=== PATIENT | female | born 1930 | race Caucasian/White ===

== ENCOUNTER 2020-10-13 06:36 | Observation (INO) ==
[2020-10-13] MEDS ORDERED: SODIUM CHLORIDE 0.9% 1000ML 1,000 ML IV STA (06:52)
[2020-10-13] MEDS ORDERED: ONDANSETRON INJ 2 MG/ML 2 ML VIAL IV STA ×2 (06:52→09:47)
[2020-10-13 07:36] LABS: Basophils # (auto) 0.02 K/uL (0-0.2); Basophils % (auto) 0.2 %; Eosinophils # (auto) 0.15 K/uL (0-0.5); Eosinophils % (auto) 1.7 %; Hematocrit (blood only) 38.2 % (37-47); Hemoglobin 12.6 g/dL (12.0-16.0); Immature Granulocytes # (auto) 0.02 K/uL (0.00-0.02); Immature Granulocytes % (auto) 0.2 %; Lymphocytes # (auto) 1.49 K/uL (1.2-3.4); Lymphocytes % (auto) 16.9 %; Mean Corpuscular Hemoglobin 29.9 pg (25-34); Mean Corpuscular Volume 90.7 fL (80-100); Mean Platelet Volume 9.5 fL (7.4-10.4); Monocytes # (auto) 0.43 K/uL (0.11-0.59); Monocytes % (auto) 4.9 %; Neutrophils # (auto) 6.72 K/uL (1.4-6.5); Neutrophils % (auto) 76.1 %; Platelet Count 295 K/uL (130-400); RDW Coefficient of Variation 14.2 % (11.5-14.5); RDW Standard Deviation 47.2 fL (36.4-46.3); Red Blood Count 4.21 M/uL (4.2-5.4); White Blood Count 8.83 K/uL (4.8-10.8)
[2020-10-13 07:56] LABS: Alanine Aminotransferase 19 U/L (12-78); Albumin Level 3.2 gm/dl (3.4-5.0); Aspartate Aminotransferase 17 U/L (15-37); BUN Creatinine Ratio 14.2 (10-20); Blood Urea Nitrogen 15 mg/dl (7-18); Calcium 8.4 mg/dl (8.5-10.1); Carbon Dioxide 25 mmol/L (21-32); Chloride 106 mmol/L (98-107); Creatinine Clr Calc Pharmacy 31.2 ml/min; Est GFR (African American) 55.6 ml/min; Est GFR (Non-African American) 47.9 ml/min; Glucose 178 mg/dl (70-99); Lipase 82 U/L (73-393); Potassium 2.9 mmol/L (3.5-5.1); Sodium 140 mmol/L (136-145)
--- NOTE | 2020-10-13 07:57 | CT Scan Report ---
CT SCAN OF THE ABDOMEN AND PELVIS WITHOUT IV CONTRAST CLINICAL HISTORY: Vomiting. Generalized abdominal pain. COMPARISON STUDY: No priors. TECHNIQUE: CT scan of the abdomen and pelvis is performed from the lung bases to the proximal femora. Images are reviewed in the axial, sagittal, and coronal planes. IV contrast was not administered for this examination. Note that the examination is performed in significantly suboptimal fashion without oral and IV contrast. A dose lowering technique was utilized adhering to the principles of ALARA. CT DOSE: 422.56 mGy.cm FINDINGS: Lung bases: The patient is status post midline sternotomy. The heart is enlarged and without pericard ial effusion. The coronary arteries are densely calcified. The lung bases are clear noting bibasilar scarring/atelectasis. There is a moderate hiatal hernia. Liver: The unenhanced liver is normal in size, contour, and attenuation. There is no intrahepatic melinda iary ductal dilatation. Gallbladder: Surgically absent noting clips in the gallbladder fossa. Spleen: Normal in size and attenuation. Pancreas: The unenhanced pancreas is moderately atrophic and grossly unremarkable. Adrenal glands: Unremarkable. Kidneys: The unenhanced kidneys are atrophic and without hydronephrosis. There are no renal calculi i dentified. A 7 cm exophytic cyst arises from the left kidney. Abdominal vasculature: The abdominal aorta is normal in course and caliber noting advanced atheroscle rotic calcification. Bowel: There is no bowel obstruction. The appendix is not identified and reported surgically absent. Peritoneum: There is no intraperitoneal free air or abdominal ascites. Lymphadenopathy: None. Pelvic viscera: The bladder is largely decompressed and grossly unremarkable. The uterus is surgicall y absent. No adnexal lesion is seen. Skeletal structures: The skeletal structures are osteopenic. There is moderate lumbosacral spondylosi s. No lytic or blastic lesions are seen. IMPRESSION: 1. Suboptimal examination without oral and IV contrast. 2. There are no acute infectious or inflammatory findings in the abdomen or pelvis. 3. Cardiomegaly. 4. Hiatal hernia. 5. Additional findings as above. ACT 112: Negative or not required by law. Electronically signed by: Fabian Olivo M.D. 10/13/2020 7:55 AM
[2020-10-13 08:00] LABS: Alkaline Phosphatase 113 U/L (45-117); Bilirubin,Total 0.7 mg/dl (0.2-1); Globulin 3.2 gm/dl (2.5-4.0); Total Protein 6.4 gm/dl (6.4-8.2); Troponin I < 0.015 ng/ml (0-0.045)
[2020-10-13] MEDS ORDERED: POTASSIUM CHLORIDE 10 MEQ TABCR PO STA (09:38)
--- NOTE | 2020-10-13 09:39 | Emergency Department Note ---
History of Present Illness General Chief complaint: Illness Stated complaint: NAUSEA/VOMITING/WEAKNESS Time Seen by Provider: 10/13/20 06:54 History of Present Illness 89-year-old female presents to the ED with a chief complaint of awakening with some diarrhea this morning. The patient states that occurred around 4:30 AM. She states that she got up and felt dizzy and felt like she was going to pass out. She lowered herself to the floor. After this she felt hot and nauseated and started vomiting. She states that she vomited numerous times. The patient called EMS as her symptoms did not otis. She denied having abdominal pains. She does report having a chicken salad sandwich that was 5 days old last night. She thought this might be related to her symptoms. She states that it tasted okay. She has no additional complaints this time. No fevers. Denies any head trauma. Home Medications Medication Instructions Recorded Confirmed Type acetaminophen 325 mg tablet 650 mg PO DIRECTED 11/21/18 10/13/20 History (Tylenol) acetaminophen 500 mg tablet 500 mg PO DIRECTED 11/21/18 10/13/20 History (Tylenol Extra Strength) aluminum hydrox-magnesium carb 160 1 tab PO HS PRN 11/21/18 10/13/20 History mg-105 mg chewable tablet (Gaviscon Extra Strength) aspirin 81 mg tablet,delayed 81 mg PO QAM 11/21/18 10/13/20 History release (Ecotrin Low Strength) atorvastatin 20 mg tablet 20 mg PO HS 11/21/18 10/13/20 History cholecalciferol (vitamin D3) 50 4,000 unit PO QDD 11/21/18 10/13/20 History mcg (2,000 unit) capsule (Vitamin D3) conjugated estrogens 0.3 mg tablet 0.3 mg PO HS 11/21/18 10/13/20 History (Premarin) escitalopram oxalate 10 mg tablet 10 mg PO QAM 11/21/18 10/13/20 History (Lexapro) furosemide 20 mg tablet (Lasix) 20 mg PO 3XWK 11/21/18 10/13/20 History glucosamine 500 mg-chondroitin 2 cap PO QAM 11/21/18 10/13/20 History 116.7 mg-herbal no.270 133.3 mg capsule (Cosamin ASU (with AKBA)) isosorbide mononitrate 30 mg 30 mg PO QAM 11/21/18 10/13/20 History tablet,extended release 24 hr lansoprazole 30 mg capsule,delayed 30 mg PO DAILYBB 11/21/18 10/13/20 History release (Prevacid) levothyroxine 25 mcg tablet 25 mcg PO DAILYBB 11/21/18 10/13/20 History (Synthroid) lisinopril 20 mg tablet 20 mg PO QAM 11/21/18 10/13/20 History metoprolol succinate 25 mg 25 mg PO QAM 11/21/18 10/13/20 History tablet,extended release 24 hr (Toprol XL) nitroglycerin 0.4 mg sublingual 0.4 mg SUBLINGUAL DIRECTED PRN 11/21/18 10/13/20 History tablet potassium chloride 10 mEq 10 meq PO 3XWK 11/21/18 10/13/20 History capsule,extended release vitamin E 400 unit capsule 400 unit PO QDD 11/21/18 10/13/20 History Allergies Allergy/AdvReac Type Severity Reaction Status Date / Time amoxicillin Allergy Intermediate HIVES Verified 03/17/20 13:49 Penicillins Allergy Unknown "CAN'T Verified 03/17/20 13:49 REMEMBER" "HIGH TEST DYE" USED FOR Allergy Intermediate Rash Uncoded 03/17/20 13:49 CARDIAC CATH; "LOW TEST DYE O.K." Past Med/Surg History Medical History (Updated 10/13/20 @ 09:44 by Toño [place] DO) CAD (coronary artery disease) Degenerative arthritis of knee, bilateral Depression GERD (gastroesophageal reflux disease) HLD (hyperlipidemia) HTN (hypertension) Hypothyroidism KAVITA (obstructive sleep apnea) Surgical History S/P CABG x 2 S/P cholecystectomy S/P LIZZIE-BSO Social History Smoking Status: Never smoker Feels Safe at Home: Yes Review of Systems A total of 10 systems reviewed and were otherwise negative Physical Exam Vital Signs Vital Signs - 24 hr 10/13/20 06:41 10/13/20 06:47 10/13/20 07:00 Temperature 36.4 C L Temperature Source Oral Pulse Rate 68 70 66 Pulse Rate from SpO2 Sensor 67 66 Respiratory Rate 17 17 20 Respiratory Effort / Characteristics Non-Labored Spontaneous Respiratory Depth Normal Blood Pressure 155/74 H 155/74 H 176/61 H Blood Pressure Mean 101 101 99 Pulse Oximetry 92 94 93 Oxygen Delivery Method Room Air Oxygen Flow Rate Sepsis New/Unexplained Change in Mental Status N/A Sepsis Action Taken by Nursing No Action Required 10/13/20 08:00 10/13/20 08:30 10/13/20 09:00 Temperature Temperature Source Pulse Rate 81 68 61 Pulse Rate from SpO2 Sensor 83 69 60 Respiratory Rate 12 19 19 Respiratory Effort / Characteristics Respiratory Depth Blood Pressure 152/71 H 141/61 H 137/62 Blood Pressure Mean 98 87 87 Pulse Oximetry 93 91 92 Oxygen Delivery Method Nasal Cannula Nasal Cannula Oxygen Flow Rate 2 2 Sepsis New/Unexplained Change in Mental Status Sepsis Action Taken by Nursing CONSTITUTIONAL/VITAL SIGNS: Reviewed / noted above. GENERAL: Non-toxic in appearance. INTEGUMENTARY: Warm, dry, and [place]. HEAD: Normocephalic. EYES: without scleral icterus or trauma. ENT/OROPHARYNX: clear and moist. LYMPHADENOPATHY/NECK: Is supple without lymphadenopathy or meningismus. RESPIRATORY: Clear to auscultation bilaterally. No increased work of breathing. CARDIOVASCULAR: Regular rate and rhythm. GI/ABDOMEN: Soft and nontender. No organomegaly or pulsatile mass. EXTREMITIES: Warm and well perfused. BACK: No CVA tenderness. NEUROLOGICAL: Intact without focal deficits. PSYCHIATRIC: normal affect. MUSCULOSKELETAL: Normally developed with good muscle tone. TRIAGE NURSING DOCUMENTATION REVIEWED. Course Administered Medications Discontinued Medications Sodium Chloride (Nss 1000ml) 1,000 mls @ 999 mls/hr IV .Q1H1M STA Stop: 10/13/20 07:52 Last Infusion: 10/13/20 09:09 Dose: 0 mls/hr Documented by: [id number] Admin: 10/13/20 07:21 Dose: 999 mls/hr Documented by: [id number] Ondansetron HCl (Ondansetron Inj 2 Mg/Ml 2 Ml Vial) 4 mg IV NOW STA Stop: 10/13/20 06:53 Last Admin: 10/13/20 07:21 Dose: 4 mg Documented by: [id number] Medical Decision Making Differential Diagnosis Gastroenteritis, food borne illness, infections, appendicitis, diverticulitis, inflammatory bowel disease, obstruction, GI bleed, biliary pathology, volvulus, as well as other pathologies. Medical Records Attestation: I reviewed the patient's medical records. Home Medications Current Medication List: was personally reviewed by me Laboratory Data Attestation: I reviewed the patient's lab results. Result diagrams: 10/13/20 Unknown 10/13/20 Unknown Lab Results 10/13/20 10/13/20 Range/Units Unknown Unknown WBC 8.83 (4.8-10.8) K/uL RBC 4.21 (4.2-5.4) M/uL Hgb 12.6 (12.0-16.0) g/dL Hct 38.2 (37-47) % MCV 90.7 (80-100) fL MCH 29.9 (25-34) pg MCHC 33.0 (32-36) g/dL RDW Std Deviation 47.2 H (36.4-46.3) fL RDW Coeff of Sarahi 14.2 (11.5-14.5) % Plt Count 295 (130-400) K/uL MPV 9.5 (7.4-10.4) fL Immature Gran % (Auto) 0.2 % Neut % (Auto) 76.1 % Lymph % (Auto) 16.9 % Worth % (Auto) 4.9 % Eos % (Auto) 1.7 % Baso % (Auto) 0.2 % Neut # (Auto) 6.72 H (1.4-6.5) K/uL Lymph # (Auto) 1.49 (1.2-3.4) K/uL Worth # (Auto) 0.43 (0.11-0.59) K/uL Eos # (Auto) 0.15 (0-0.5) K/uL Baso # (Auto) 0.02 (0-0.2) K/uL Immature Gran # (Auto) 0.02 (0.00-0.02) K/uL Sodium 140 (136-145) mmol/L Potassium 2.9 L (3.5-5.1) mmol/L Chloride 106 (98-107) mmol/L Carbon Dioxide 25 (21-32) mmol/L Anion Gap 8.0 (3-11) BUN 15 (7-18) mg/dl Creatinine 1.04 (0.6-1.2) mg/dl Est Cr Clr Drug Dosing 31.2 ml/min Est GFR ( Amer) 55.6 ml/min Est GFR (Non-Af Amer) 47.9 ml/min BUN/Creatinine Ratio 14.2 (10-20) Glucose 178 H (70-99) mg/dl Calcium 8.4 L (8.5-10.1) mg/dl Total Bilirubin 0.7 (0.2-1) mg/dl AST 17 (15-37) U/L ALT 19 (12-78) U/L Alkaline Phosphatase 113 (45-117) U/L Troponin I < 0.015 (0-0.045) ng/ml Total Protein 6.4 (6.4-8.2) gm/dl Albumin 3.2 L (3.4-5.0) gm/dl Globulin 3.2 (2.5-4.0) gm/dl Albumin/Globulin Ratio 1.0 (0.9-2) Lipase 82 (73-393) U/L Imaging Data Radiologist's Impression: Abdomen/Pelvis CT 10/13/20 06:52 CT SCAN OF THE ABDOMEN AND PELVIS WITHOUT IV CONTRAST CLINICAL HISTORY: Vomiting. Generalized abdominal pain. COMPARISON STUDY: No priors. TECHNIQUE: CT scan of the abdomen and pelvis is performed from the lung bases to the proximal femora. Images are reviewed in the axial, sagittal, and coronal planes. IV contrast was not administered for this examination. Note that the examination is performed in significantly suboptimal fashion without oral and IV contrast. A dose lowering technique was utilized adhering to the principles of ALARA. CT DOSE: 422.56 mGy.cm FINDINGS: Lung bases: The patient is status post midline sternotomy. The heart is enlarged and without pericardial effusion. The coronary arteries are densely calcified. The lung bases are clear noting bibasilar scarring/atelectasis. There is a moderate hiatal hernia. Liver: The unenhanced liver is normal in size, contour, and attenuation. There is no intrahepatic biliary ductal dilatation. Gallbladder: Surgically absent noting clips in the gallbladder fossa. Spleen: Normal in size and attenuation. Pancreas: The unenhanced pancreas is moderately atrophic and grossly unremarkable. Adrenal glands: Unremarkable. Kidneys: The unenhanced kidneys are atrophic and without hydronephrosis. There are no renal calculi identified. A 7 cm exophytic cyst arises from the left kidney. Abdominal vasculature: The abdominal aorta is normal in course and caliber noting advanced atherosclerotic calcification. Bowel: There is no bowel obstruction. The appendix is not identified and reported surgically absent. Peritoneum: There is no intraperitoneal free air or abdominal ascites. Lymphadenopathy: None. Pelvic viscera: The bladder is largely decompressed and grossly unremarkable. The uterus is surgically absent. No adnexal lesion is seen. Skeletal structures: The skeletal structures are osteopenic. There is moderate lumbosacral spondylosis. No lytic or blastic lesions are seen. IMPRESSION: 1. Suboptimal examination without oral and IV contrast. 2. There are no acute infectious or inflammatory findings in the abdomen or pelvis. 3. Cardiomegaly. 4. Hiatal hernia. 5. Additional findings as above. ACT 112: Negative or not required by law. Electronically signed by: Fabian Olivo M.D. 10/13/2020 7:55 AM ECG Data Attestation: I personally reviewed and interpreted this ECG as follows: Additional Comments: Twelve-lead EKG: Per my interpretation reveals a normal sinus rhythm at a rate of 66. No ST elevation. No PVCs. Normal QTC. MDM Narrative Patient presents with some diarrhea and vomiting possibly related to a sandwich she had last night. Details listed above. The patient's exam did not reveal any abdominal tenderness. Her twelve-lead EKG shows normal sinus rhythm at a rate of 66. Potassium is 2.9. Glucose is 178. CT scan of the abdomen pelvis did not show acute process. The patient was given IV fluids as well as IV Zofran x2. Oral potassium was ordered but the patient threw up before getting it. She will need observation for IV hydration, potassium replacement and vomit ing control. She also had an episode of diarrhea while here. Impression & Plan Nausea vomiting and diarrhea, Acute hypokalemia Discharge Plan Visit Data Chief Complaint: Illness Stated Complaint: NAUSEA/VOMITING/WEAKNESS ED Provider: Toño [place] Discharge Problem: Nausea vomiting and diarrhea, Acute hypokalemia Patient Disposition: Home - Self-Care Forms Stand Alone Forms: My [facility], Virtual Emergency Department, Important Visit Information Prescriptions Prescriptions: No Action potassium chloride 10 mEq Capsule, Extended Release 10 meq PO 3XWK RF: 0 acetaminophen [Tylenol] 325 mg Tablet 650 mg PO DIRECTED RF: 0 atorvastatin 20 mg Tablet 20 mg PO HS RF: 0 lisinopril 20 mg Tablet 20 mg PO QAM RF: 0 isosorbide mononitrate 30 mg Tablet Extended Release 24 Hr 30 mg PO QAM RF: 0 aspirin [Ecotrin Low Strength] 81 mg Tablet,Delayed Release (Dr/Ec) 81 mg PO QAM RF: 0 acetaminophen [Tylenol Extra Strength] 500 mg Tablet 500 mg PO DIRECTED RF: 0 levothyroxine [Synthroid] 25 mcg Tablet 25 mcg PO DAILYBB RF: 0 lansoprazole [Prevacid] 30 mg Capsule,Delayed Release(Dr/Ec) 30 mg PO DAILYBB RF: 0 nitroglycerin 0.4 mg Tablet, Sublingual 0.4 mg sublingual DIRECTED PRN (Reason: Chest Pain) RF: 0 furosemide [Lasix] 20 mg Tablet 20 mg PO 3XWK RF: 0 metoprolol succinate [Toprol XL] 25 mg Tablet Extended Release 24 Hr 25 mg PO QAM RF: 0 Gaviscon Extra Strength 160-105 mg Tablet,Chewable 1 tab PO HS PRN (Reason: Indigestion) RF: 0 vitamin E 400 unit Capsule 400 unit PO QDD RF: 0 Premarin 0.3 mg Tablet 0.3 mg PO HS RF: 0 escitalopram oxalate [Lexapro] 10 mg Tablet 10 mg PO QAM RF: 0 cholecalciferol (vitamin D3) [Vitamin D3] 2,000 unit Capsule 4,000 unit PO QDD RF: 0 Cosamin ASU (with AKBA) 500 mg-116.7 mg-133.3 mg Capsule 2 cap PO QAM RF: 0 Referrals Referrals: Sixto Li DO [Primary Care Provider] -
[2020-10-13] MEDS ORDERED: POTASSIUM CHLORIDE / WTR 10 MEQ/100 ML PLCT IV ONE (09:47)
--- NOTE | 2020-10-13 10:40 | XRay Report ---
SINGLE VIEW CHEST CLINICAL HISTORY: Dyspnea. Cough and fever. FINDINGS: An AP, portable, upright chest radiograph is compared to study dated 03/13/2016. The patien t is status post midline sternotomy. The heart is mildly enlarged noting atherosclerotic calcificatio n of the thoracic aorta. There is bibasilar scarring/atelectasis. Chronic interstitial thickening is similar to previous. The lungs and pleural spaces are otherwise clear. No pneumothorax is seen. The s keletal structures are osteopenic. The bony thorax is grossly intact. IMPRESSION: Mild cardiomegaly with no acute cardiopulmonary abnormality. ACT 112: Negative or not required by law. Electronically signed by: Fabian Olivo M.D. 10/13/2020 10:38 AM
--- NOTE | 2020-10-13 10:52 | History & Physical Report ---
Date of Service October 13, 2020 Assessment & Plan (1) Gastritis: (2) Nausea vomiting and diarrhea: Plan: - Admit to med surg on observation - Will check magnesium. - Likely due to gastritis secondary to food poisoning from chicken salad that was at least 5 days old. - Check stool culture, wbc, giardia, O&P. No recent antibiotic use. Also afebrile without leukocytosis so will hold off on antibiotics at this time. - Continue IVFs with NSS at 125 ml/hr for now. Holding home lasix - however pt reports that she rarely takes this medication, maybe once every few weeks when her feet get swollen. (3) Acute hypokalemia: Plan: - Replaced with IV 10 meq in the ER, will add on additional 30 meq IV now, will give PO with lunch as hopefully will be less nauseous at that point. - Follow with am labs - EKG reviewed, repeat tomorrow am (4) CAD (coronary artery disease): Plan: - Hx of coronary bypass surgery in 1995, no cardiac stenting - Follows with PCP primarily - Continue cardiac meds as listed (5) HTN (hypertension): Plan: - Continue metoprolol succinate 25 mg daily, lisinopril 20 mg daily, atorvastatin 20 mg daily. Holding lasix. (6) HLD (hyperlipidemia): Plan: - Cont statin therapy (7) Hypothyroidism: Plan: - Checking TSH and free T4, pt did not take am medications. (8) Depression: Plan: - Continue lexapro daily (9) KAVITA (obstructive sleep apnea): Plan: - Continue CPAP HS- pt has not been wearing this recently much at home (10) GERD (gastroesophageal reflux disease): Plan: - Cont lansoprazole DVT ppx: teds, scds CODE: FULL Dispo: From home, likely to remain in the hospital x 1-2 days. History of Present Illness Chief Complaint: Nausea vomiting and diarrhea Primary Care Provider: Sixto Li, This is an 89-year-old female with PMHx of CAD, HTN, HLD, hypothyroidism, KAVITA, GERD, depression who presents with acute onset of nausea and vomiting which is intractable in the ER and is unable to tolerate p.o. intake. She is noted to be hypokalemic with potassium of 2.9. Patient reports that she has her days and nights mixed up, that she typically sleeps all day and is awake all night and goes to bed sometime around 4am. She was awake at 4:30 AM and had a diarrhea attack. She developed nausea and vomiting shortly after this, which has only recently improved. She denies any abdominal pain or cramping. Last evening, she had eaten a chicken salad sandwich, which was from the store 5 days ago. She denies any other recent picnics, lives in the [facility] and has city water, and does not have pets. She denies any other complaints. Lives at home alone, ambulates well without assistive devices. She wears CPAP HS at night. Pt main complaint currently is dizziness. Her son is present at bedside and supports the history. Allergies Allergy/AdvReac Type Severity Reaction Status Date / Time amoxicillin Allergy Intermediate HIVES Verified 03/17/20 13:49 Penicillins Allergy Unknown "CAN'T Verified 03/17/20 13:49 REMEMBER" "HIGH TEST DYE" USED FOR Allergy Intermediate Rash Uncoded 03/17/20 13:49 CARDIAC CATH; "LOW TEST DYE O.K." Home Medications Medication Instructions Recorded Confirmed Type acetaminophen 325 mg tablet 650 mg PO DIRECTED 11/21/18 10/13/20 History (Tylenol) acetaminophen 500 mg tablet 500 mg PO DIRECTED 11/21/18 10/13/20 History (Tylenol Extra Strength) aluminum hydrox-magnesium carb 160 1 tab PO HS PRN 11/21/18 10/13/20 History mg-105 mg chewable tablet (Gaviscon Extra Strength) aspirin 81 mg tablet,delayed 81 mg PO QAM 11/21/18 10/13/20 History release (Ecotrin Low Strength) atorvastatin 20 mg tablet 20 mg PO HS 11/21/18 10/13/20 History cholecalciferol (vitamin D3) 50 4,000 unit PO QDD 11/21/18 10/13/20 History mcg (2,000 unit) capsule (Vitamin D3) conjugated estrogens 0.3 mg tablet 0.3 mg PO HS 11/21/18 10/13/20 History (Premarin) escitalopram oxalate 10 mg tablet 10 mg PO QAM 11/21/18 10/13/20 History (Lexapro) furosemide 20 mg tablet (Lasix) 20 mg PO 3XWK 11/21/18 10/13/20 History glucosamine 500 mg-chondroitin 2 cap PO QAM 11/21/18 10/13/20 History 116.7 mg-herbal no.270 133.3 mg capsule (Cosamin ASU (with AKBA)) isosorbide mononitrate 30 mg 30 mg PO QAM 11/21/18 10/13/20 History tablet,extended release 24 hr lansoprazole 30 mg capsule,delayed 30 mg PO DAILYBB 11/21/18 10/13/20 History release (Prevacid) levothyroxine 25 mcg tablet 25 mcg PO DAILYBB 11/21/18 10/13/20 History (Synthroid) lisinopril 20 mg tablet 20 mg PO QAM 11/21/18 10/13/20 History metoprolol succinate 25 mg 25 mg PO QAM 11/21/18 10/13/20 History tablet,extended release 24 hr (Toprol XL) nitroglycerin 0.4 mg sublingual 0.4 mg SUBLINGUAL DIRECTED PRN 11/21/18 10/13/20 History tablet potassium chloride 10 mEq 10 meq PO 3XWK 11/21/18 10/13/20 History capsule,extended release vitamin E 400 unit capsule 400 unit PO QDD 11/21/18 10/13/20 History Past Med/Surg History Medical History CAD (coronary artery disease) Degenerative arthritis of knee, bilateral Depression GERD (gastroesophageal reflux disease) HLD (hyperlipidemia) HTN (hypertension) Hypothyroidism KAVITA (obstructive sleep apnea) Surgical History S/P CABG x 2 S/P cholecystectomy S/P LIZZIE-BSO Social History Smoking Status: Never smoker Feels Safe at Home: Yes Review of Systems Review of Systems: Constitutional: No fever, sweats or chills Eyes: No diplopia, no worsening or blurred vision ENT: normal hearing, no trouble swallowing Respiratory: No cough, sputum, dyspnea at rest or on exertion Cardiovascular: No chest pain, tightness or palpitations Abdomen: No pain, + nausea, + vomiting, diarrhea or constipation Musculoskeletal: + osteoarthritis, chronic knee joint pain, no calf pain, no swelling Neurologic: No weakness, numbness/tingling, or balance problems Psychiatric: No anxiety, + depression on SSRI Skin: No rash or itch Physical Exam Physical Exam: General: awake, alert, no apparent distress Head: Normocephalic, atraumatic ENT: PERRL, EOMI, no pharyngeal exudate, mucous membranes moist Chest: Clear to auscultation, on room air, no adventitious breath sounds Cardiac: Regular rate and rhythm, no murmur, no JVD, normal peripheral pulses, good capillary refill Abdominal: NABS x 4 quadrants, soft, nondistended, nontender to palpation, no rebound or guarding Extremities: Normal inspection, no peripheral edema or erythema, calfs nontender to palpation Psych: Normal mood and affect Neuro: AAO x 3, strength intact bilaterally and rated 5/5, no motor deficits, speech is clear, no peripheral sensory deficits Results & Data Results & Data ([facility]) Vital Signs (Past 12 Hours) Vital Signs Temp Pulse Resp BP Pulse Ox 10/13/20 10:30 65 19 155/73 H 97 10/13/20 10:00 64 25 H 143/62 H 10/13/20 09:43 68 17 10/13/20 09:00 61 19 137/62 92 10/13/20 08:30 68 19 141/61 H 91 10/13/20 08:00 81 12 152/71 H 93 10/13/20 07:00 66 20 176/61 H 93 10/13/20 06:47 36.4 C L 70 17 155/74 H 94 10/13/20 06:41 68 17 155/74 H 92 Laboratory Results Short CBC 10/13/20 Range/Units Unknown WBC 8.83 (4.8-10.8) K/uL Hgb 12.6 (12.0-16.0) g/dL Hct 38.2 (37-47) % Plt Count 295 (130-400) K/uL BMP 10/13/20 Unknown Sodium 140 Potassium 2.9 L Chloride 106 Carbon Dioxide 25 BUN 15 Creatinine 1.04 Glucose 178 H Calcium 8.4 L Cardiac Enzymes 10/13/20 Range/Units Unknown Troponin I < 0.015 (0-0.045) ng/ml Liver Function 10/13/20 Range/Units Unknown Total Bilirubin 0.7 (0.2-1) mg/dl AST 17 (15-37) U/L ALT 19 (12-78) U/L Alkaline Phosphatase 113 (45-117) U/L Albumin 3.2 L (3.4-5.0) gm/dl Diagnostic Findings Abdomen/Pelvis CT 10/13/20 06:52 CT SCAN OF THE ABDOMEN AND PELVIS WITHOUT IV CONTRAST CLINICAL HISTORY: Vomiting. Generalized abdominal pain. COMPARISON STUDY: No priors. TECHNIQUE: CT scan of the abdomen and pelvis is performed from the lung bases to the proximal femora. Images are reviewed in the axial, sagittal, and coronal planes. IV contrast was not administered for this examination. Note that the examination is performed in significantly suboptimal fashion without oral and IV contrast. A dose lowering technique was utilized adhering to the principles of ALARA. CT DOSE: 422.56 mGy.cm FINDINGS: Lung bases: The patient is status post midline sternotomy. The heart is enlarged and without pericardial effusion. The coronary arteries are densely calcified. The lung bases are clear noting bibasilar scarring/atelectasis. There is a moderate hiatal hernia. Liver: The unenhanced liver is normal in size, contour, and attenuation. There is no intrahepatic biliary ductal dilatation. Gallbladder: Surgically absent noting clips in the gallbladder fossa. Spleen: Normal in size and attenuation. Pancreas: The unenhanced pancreas is moderately atrophic and grossly unremarkable. Adrenal glands: Unremarkable. Kidneys: The unenhanced kidneys are atrophic and without hydronephrosis. There are no renal calculi identified. A 7 cm exophytic cyst arises from the left kidney. Abdominal vasculature: The abdominal aorta is normal in course and caliber noting advanced atherosclerotic calcification. Bowel: There is no bowel obstruction. The appendix is not identified and reported surgically absent. Peritoneum: There is no intraperitoneal free air or abdominal ascites. Lymphadenopathy: None. Pelvic viscera: The bladder is largely decompressed and grossly unremarkable. The uterus is surgically absent. No adnexal lesion is seen. Skeletal structures: The skeletal structures are osteopenic. There is moderate lumbosacral spondylosis. No lytic or blastic lesions are seen. IMPRESSION: 1. Suboptimal examination without oral and IV contrast. 2. There are no acute infectious or inflammatory findings in the abdomen or pelvis. 3. Cardiomegaly. 4. Hiatal hernia. 5. Additional findings as above. ACT 112: Negative or not required by law. Electronically signed by: Fabian Olivo M.D. 10/13/2020 7:55 AM Chest X-Ray 10/13/20 09:48 SINGLE VIEW CHEST CLINICAL HISTORY: Dyspnea. Cough and fever. FINDINGS: An AP, portable, upright chest radiograph is compared to study dated 03/13/2016. The patient is status post midline sternotomy. The heart is mildly enlarged noting atherosclerotic calcification of the thoracic aorta. There is bibasilar scarring/atelectasis. Chronic interstitial thickening is similar to previous. The lungs and pleural spaces are otherwise clear. No pneumothorax is seen. The skeletal structures are osteopenic. The bony thorax is grossly intact. IMPRESSION: Mild cardiomegaly with no acute cardiopulmonary abnormality. ACT 112: Negative or not required by law. Electronically signed by: Fabian Olivo M.D. 10/13/2020 10:38 AM ECG Additional Comments: 13-OCT-2020 06:44:33 [facility]-EDSTAT ROUTINE RETRIEVAL Normal sinus rhythm Minimal voltage criteria for LVH, may be normal variant Septal infarct , age undetermined Inferior infarct , age undetermined Abnormal ECG When compared with ECG of 14-MAR-2016 07:21, Septal infarct is now Present T wave inversion now evident in Inferior leads 25mm/s 10mm/mV 150Hz 9.0.9 12SL 241 HD JENNIFER: 12 Referred by: REFERRED SELF Unconfirmed Vent. rate 66 BPM NJ interval 176 ms QRS duration 88 ms QT/QTc 440/461 ms Code Status & VTE Plan Code Status Full code - discussed with the patient and her son at bedside. Supervising Physician Co-Signing Physician Notes Patient is an 89-year-old female with history of CAD, hypertension, hypothyroidism and other medical problems presents with history of nausea, vomiting, diarrhea since this morning. She admits to eating chicken salad which is a leftover from 5 days ago. She has been having intractable vomiting and unable to tolerate any food intake. She denies any abdominal pain, fever, chills, chest pain, dyspnea but admits to having dizziness. Please review HPI for complete details of presentation. CT ABD showed no acute infectious or limited findings on the abdominal pelvis. She was noted to have hypokalemia 2.9. On exam patient is moderately built and nourished, no apparent distress, normocephalic atraumatic, EOMI, neck is supple, normal breaths sounds, clear to auscultation, +CABG scar, S1-S2, no murmur, trace pedal edema, abdomen soft, nontender, normal bowel sounds, alert, awake, o riented, grossly no focal deficits. Patient is admitted for management of acute gastroenteritis, hypokalemia, intractable nausea, vomiting. Start on clear liquid diet and advance as tolerated, IV fluids. Antiemetics as needed. Stool studies to rule out any infectious source. No indication for antibiotics currently. Hold Lasix. Replace electrolytes. I personally reviewed the record. Patient is interviewed and examined at bedside. Patient's care is coordinated with Lizbet Mcleod PA-C. Please refer to the documentation above for details of patient's presentation and for discussion of other issues.
[2020-10-13] MEDS ORDERED: ONDANSETRON INJ 2 MG/ML 2 ML VIAL IV PRN ×2 (11:29→14:14)
[2020-10-13] MEDS ORDERED: POTASSIUM CHLORIDE / WTR 10 MEQ/100 ML PLCT IV STA (12:07)
[2020-10-13 12:29] LABS: Magnesium 2.1 mg/dl (1.8-2.4); Thyroid Stimulating Hormone 3.35 uIu/ml (0.300-4.500)
[2020-10-13] MEDS ORDERED: ACETAMINOPHEN 325 MG TAB PO PRN (14:14)
[2020-10-13] MEDS ORDERED: POTASSIUM CHLORIDE CRTAB 20 MEQ TABCR PO ONE (14:22)
[2020-10-13] MEDS: POTASSIUM CHLORIDE / WTR 10 MEQ/100 ML PLCT IV SCH ×2 (16:22→18:36)
--- NOTE | 2020-10-13 16:24 | Electrocardiogram Report ---
Test Reason : Blood Pressure : / mmHG Vent. Rate : 066 BPM Atrial Rate : 066 BPM P-R Int : 176 ms QRS Dur : 088 ms QT Int : 440 ms P-R-T Axes : 045 -15 -09 degrees QTc Int : 461 ms Normal sinus rhythm Minimal voltage criteria for LVH, may be normal variant Septal infarct , age undetermined Inferior infarct , age undetermined Abnormal ECG When compared with ECG of 14-MAR-2016 07:21, Septal infarct is now Present T wave inversion now evident in Inferior leads Confirmed by Jeremiah Cantu ([id number]) on 10/13/2020 4:23:56 PM Referred By: REFERRED SELF Confirmed By:Jeremiah Cantu
[2020-10-13] MEDS: SODIUM CHLORIDE 0.9% 1000ML 1,000 ML IV SCH (16:31)
[2020-10-13] MEDS: CHOLECALCIFEROL 1,000 UNITS 25 MCG TAB PO SCH (16:58)
[2020-10-13 20:23] LABS: Appearance Urine Clear (Clear); Bilirubin Urine Negative (Negative); Blood Urine Negative (Negative); Color Urine Yellow; Glucose Urine UA Negative (Negative); Ketones Urine Negative (Negative); Leukocyte Esterase Urine Negative (Negative); Nitrite Urine Negative (Negative); Protein Urine Negative (Negative); Specific Gravity Urine 1.011 (1.000-1.030); Urobilinogen Urine Negative (Negative); pH Urine 6.5 (4.5-7.5)
[2020-10-13] MEDS ORDERED: ATORVASTATIN 20 MG TAB PO SCH (21:00)
[2020-10-13] MEDS ORDERED: ESTROGENS, CONJUGATED 0.3 MG TAB PO SCH (21:00)
[2020-10-13 21:48] LABS: BUN Creatinine Ratio 11.9 (10-20); Calcium 8.1 mg/dl (8.5-10.1); Creatinine Clr Calc Pharmacy 37.7 ml/min; Est GFR (African American) 69.9 ml/min; Est GFR (Non-African American) 60.3 ml/min
[2020-10-14] MEDS: SODIUM CHLORIDE 0.9% 1000ML 1,000 ML IV SCH ×2 (03:20→15:32)
[2020-10-14 06:19] LABS: Hematocrit (blood only) 31.8 % (37-47); Hemoglobin 10.4 g/dL (12.0-16.0); Mean Corpuscular Hemoglobin 29.6 pg (25-34); Mean Corpuscular Hgb Conc 32.7 g/dL (32-36); Mean Corpuscular Volume 90.6 fL (80-100); Mean Platelet Volume 9.2 fL (7.4-10.4); Platelet Count 210 K/uL (130-400); RDW Coefficient of Variation 14.4 % (11.5-14.5); RDW Standard Deviation 47.2 fL (36.4-46.3); Red Blood Count 3.51 M/uL (4.2-5.4); White Blood Count 6.73 K/uL (4.8-10.8)
[2020-10-14] MEDS ORDERED: LEVOTHYROXINE SODIUM 25 MCG TABLET PO SCH (06:30)
[2020-10-14] MEDS ORDERED: PANTOprazole 40 MG TAB PO SCH (06:30)
[2020-10-14 06:45] LABS: Albumin Level 2.5 gm/dl (3.4-5.0); BUN Creatinine Ratio 10.8 (10-20); Creatinine Clr Calc Pharmacy 44.4 ml/min; Est GFR (African American) 85.2 ml/min; Est GFR (Non-African American) 73.5 ml/min; Potassium 3.5 mmol/L (3.5-5.1)
[2020-10-14 06:51] LABS: Bilirubin,Total 0.7 mg/dl (0.2-1); Globulin 2.4 gm/dl (2.5-4.0); Phosphorus 2.9 mg/dl (2.5-4.9); Total Protein 4.9 gm/dl (6.4-8.2)
[2020-10-14] MEDS ORDERED: ENOXAPARIN INJ 40 MG/0.4 ML SYR SQ SCH (09:00)
[2020-10-14] MEDS ORDERED: ISOSORBIDE MONO EXTENDED REL 30 MG TABCR PO SCH (09:00)
[2020-10-14] MEDS ORDERED: lisinopril 20 MG TAB PO SCH (09:00)
[2020-10-14] MEDS ORDERED: ESCITALOPRAM OXALATE 10 MG TAB PO SCH (09:00)
[2020-10-14] MEDS ORDERED: METOPROLOL SUCC 25MG EXT REL TAB PO SCH (09:00)
[2020-10-14] MEDS ORDERED: [UNRECOGNIZED DRUG - OTHER] PO SCH (09:00)
[2020-10-14] MEDS ORDERED: ASPIRIN 81 MG ECTAB PO SCH (09:00)
--- NOTE | 2020-10-14 15:01 | Electrocardiogram Report ---
Test Reason : Blood Pressure : / mmHG Vent. Rate : 059 BPM Atrial Rate : 059 BPM P-R Int : 174 ms QRS Dur : 082 ms QT Int : 416 ms P-R-T Axes : 050 000 023 degrees QTc Int : 411 ms Sinus bradycardia with sinus arrhythmia Old Anteroseptal infarct (cited on or before 13-MAR-2016) Possible Old Inferior infarct Abnormal ECG When compared with ECG of 13-OCT-2020 06:44, No significant change Confirmed by Toni Cunningham ([id number]) on 10/14/2020 3:00:35 PM Referred By: REFERRED SELF Confirmed By:Toni Cunningham
--- NOTE | 2020-10-14 17:23 | Discharge Summary ---
Date of Service October 14, 2020 Admission HPI Per Admitting Provider This is an 89-year-old female with PMHx of CAD, HTN, HLD, hypothyroidism, KAVITA, GERD, depression who presents with acute onset of nausea and vomiting which is intractable in the ER and is unable to tolerate p.o. intake. She is noted to be hypokalemic with potassium of 2.9. Patient reports that she has her days and nights mixed up, that she typically sleeps all day and is awake all night and goes to bed sometime around 4am. She was awake at 4:30 AM and had a diarrhea attack. She developed nausea and vomiting shortly after this, which has only recently improved. She denies any abdominal pain or cramping. Last evening, she had eaten a chicken salad sandwich, which was from the store 5 days ago. She denies any other recent picnics, lives in the [facility] and has city water, and does not have pets. She denies any other complaints. Lives at home alone, ambulates well without assistive devices. She wears CPAP HS at night. Pt main complaint currently is dizziness. Her son is present at bedside and supports the history. Principal Diagnosis Abdominal pain -resolved right lower extremity cellulitis Discharge Exam Physical exam: General: No acute distress, alert awake oriented x3 HEENT: PERRLA, EOMI, Heart: Regular S1-S2, no carotid bruit, no JVD, no lower extremity edema Lungs: Clear to auscultate, no wheeze or rales Abdomen: Soft nontender, no organomegaly Extremity: No cyanosis, no deformity, normal strength 5 out of 5 with upper and lower Neuro: No focal neurological deficit normal speech, normal visual field, Motor strength : normal both upper and lower extremity, sensation intact Psych: Alert awake oriented x3, normal affect Discharge Data Allergies Allergy/AdvReac Type Severity Reaction Status Date / Time amoxicillin Allergy Intermediate HIVES Verified 03/17/20 13:49 Penicillins Allergy Unknown "CAN'T Verified 03/17/20 13:49 REMEMBER" "HIGH TEST DYE" USED FOR Allergy Intermediate Rash Uncoded 03/17/20 13:49 CARDIAC CATH; "LOW TEST DYE O.K." Consultations 10/13/20 10:51 ED Decision to Admit Stat Ordered Studies 10/13/20 06:52 CT abd pelvis wo con Stat Hospital Course (1) Gastritis: (2) Nausea vomiting and diarrhea: - Likely due to gastritis secondary to food poisoning from chicken salad that was at least 5 days old. Symptom has completely resolved, no further episode of diarrhea or loose stool No abdominal pain or nausea, tolerating diet Electrolytes normalized (3) Acute hypokalemia: Corrected (4) CAD (coronary artery disease): - Hx of coronary bypass surgery in 1995, no cardiac stenting - Follows with PCP primarily - Continue cardiac meds as listed (5) HTN (hypertension): - continue outpatient meds (6) HLD (hyperlipidemia): - Cont statin therapy (7) Hypothyroidism: -Continue outpatient meds (8) Depression: - Continue lexapro daily (9) KAVITA (obstructive sleep apnea): - Continue CPAP HS- pt has not been wearing this recently much at home (10) GERD (gastroesophageal reflux disease): - Cont lansoprazole DVT ppx: justine, scds CODE: FULL Dispo: Has complete resolution of GI symptoms diet advanced to solid tolerating well, stable to be discharged home today Total Time Total Time Spent Total Time Spent (In Minutes): 35 mins Discharge Plan Discharge Items Patient Disposition: Home - Self-Care Reason For Visit: INTRACTABLE NAUSEA AND VOMITING Discharge Diagnosis: Gastritis -possible food poisoning Abdominal pain , diarrhea , nausea , vomiting -resloved low potassium -corrected Activity: Resume your previous activity Non-emergency contact: Primary Care Provider Call non-emergency contact if: you have any medication questions Follow-up/Referrals: Sixto Li, [Primary Care Provider] - Diet: Heart Healthy Addtl Attending Provider Instructions: Please take all medications as instructed on discharge list below. It is recommended that you follow-up with your primary care physician within 1-2 weeks of hospital discharge to ensure you are still doing well. Please call if you have any questions or problems. You can reach a [facility] hospitalist on duty at [facility] 24 hours a day by calling [phone] Pending Studies at Discharge: No Stand-Alone Forms: My [facility] [employer] in [place], Smoking Cessation Medications and DC Order Prescriptions: Continued potassium chloride 10 mEq Capsule, Extended Release 10 meq PO 3XWK RF: 0 acetaminophen [Tylenol] 325 mg Tablet 650 mg PO DIRECTED RF: 0 atorvastatin 20 mg Tablet 20 mg PO HS RF: 0 lisinopril 20 mg Tablet 20 mg PO QAM RF: 0 isosorbide mononitrate 30 mg Tablet Extended Release 24 Hr 30 mg PO QAM RF: 0 aspirin [Ecotrin Low Strength] 81 mg Tablet,Delayed Release (Dr/Ec) 81 mg PO QAM RF: 0 acetaminophen [Tylenol Extra Strength] 500 mg Tablet 500 mg PO DIRECTED RF: 0 levothyroxine [Synthroid] 25 mcg Tablet 25 mcg PO DAILYBB RF: 0 lansoprazole [Prevacid] 30 mg Capsule,Delayed Release(Dr/Ec) 30 mg PO DAILYBB RF: 0 nitroglycerin 0.4 mg Tablet, Sublingual 0.4 mg sublingual DIRECTED PRN (Reason: Chest Pain) RF: 0 furosemide [Lasix] 20 mg Tablet 20 mg PO 3XWK RF: 0 metoprolol succinate [Toprol XL] 25 mg Tablet Extended Release 24 Hr 25 mg PO QAM RF: 0 Gaviscon Extra Strength 160-105 mg Tablet,Chewable 1 tab PO HS PRN (Reason: Indigestion) RF: 0 vitamin E 400 unit Capsule 400 unit PO QDD RF: 0 Premarin 0.3 mg Tablet 0.3 mg PO HS RF: 0 escitalopram oxalate [Lexapro] 10 mg Tablet 10 mg PO QAM RF: 0 cholecalciferol (vitamin D3) [Vitamin D3] 2,000 unit Capsule 4,000 unit PO QDD RF: 0 Cosamin ASU (with AKBA) 500 mg-116.7 mg-133.3 mg Capsule 2 cap PO QAM RF: 0 Discharge Orders: Discharge Order (Routine); Ordered 10/14/20 Ordered By: Radha Feliz Admission Data Admit Date/Time: 10/13/20 10:55 Attending Provider: Radha Feliz Admit Provider: Leobardo Romano Primary Care Provider: Sixto Li Other Providers: Leobardo Romano Other Interventions: Discharge Summary Assessment (RN) Last Done: 10/14/20 18:24
[2020-10-14] MEDS: CHOLECALCIFEROL 1,000 UNITS 25 MCG TAB PO SCH (18:12)
== END 2020-10-14 19:01 | disposition home or self-care (01) ==
LOC: 3W 06:36 → ED 06:36 → SUATTDRO 10:55 → 3W 12:46